=== PATIENT | female | born 1985 | race Two or more races ===

== ENCOUNTER 2017-10-21 11:26 | Emergency (ER) | payer OTHER ==
[~2017-10-21] VITALS: Ht 152.4 cm; Wt 73.0 kg
[2017-10-21] MEDS ORDERED: LIDOCAINE-MPF 1%, 2ML ONE (11:55)
[2017-10-21] MEDS ORDERED: LIDOCAINE-MPF 1%, 5ML INFIL ONE (12:00)
[2017-10-21 13:32] VITALS: BP 137/71
== END 2017-10-21 14:34 | disposition home or self-care (01) ==
LOC: ED 13:30
DX: S92.421B Displaced fracture of distal phalanx of right great toe, initial encounter for open fracture (principal); S91.201A Unspecified open wound of right great toe with damage to nail, initial encounter; W20.8XXA Other cause of strike by thrown, projected or falling object, initial encounter; Y93.89 Activity, other specified; Y92.009 Unspecified place in unspecified non-institutional (private) residence as the place of occurrence of the external cause; Y99.8 Other external cause status
CPT/HCPCS: 11760; 13131